=== PATIENT | male | born 1990 | race Caucasian/White ===

== ENCOUNTER 2017-06-11 11:04 | Emergency (ER) | payer OTHER ==
[~2017-06-11] VITALS: Ht 187.9 cm; Wt 108.9 kg
[~2017-06-11 11:04] MED LIST: AMOXIL500 MG PO; ATARAX25 MG PO; COZAAR25 MG PO; COZAAR50 M1 PO; DICYCLOMINE HCL10 MG PO; MOTRIN800 MG PO; NKHM; OMEPRAZOLE40 MG PO; PREDNISONE20 MG PO
[2017-06-11] MEDS ORDERED: ROBITUSSIN DM 105 ML PO (11:41)
[2017-06-11] MEDS ORDERED: FLONASE ALLERG9.9 ML NAS (11:41)
[2017-06-11] MEDS ORDERED: PREDNISONE10 MG PO (11:41)
[2017-06-11] MEDS ORDERED: CLARITIN10 MG PO (11:41)
== END 2017-06-11 12:43 | disposition home or self-care (01) ==
LOC: ED 11:04
DX: J20.9 Acute bronchitis, unspecified (principal); R03.0 Elevated blood-pressure reading, without diagnosis of hypertension; Z79.899 Other long term (current) drug therapy; Z88.1 Allergy status to other antibiotic agents